=== PATIENT | female | born 1970 | race Caucasian/White ===

== ENCOUNTER 2019-07-02 15:18 | Emergency (ER) | payer MEDICAID ==
[~2019-07-02] VITALS: Ht 154.9 cm; Wt 85.3 kg
[2019-07-02 15:52] VITALS: Ht 154.9 cm; Wt 85.3 kg
[2019-07-02 19:38] VITALS: BP 155/104
== END 2019-07-02 19:37 | disposition home or self-care (01) ==
LOC: ED 15:18
DX: S16.1XXA Strain of muscle, fascia and tendon at neck level, initial encounter (principal); S29.012A Strain of muscle and tendon of back wall of thorax, initial encounter; S39.012A Strain of muscle, fascia and tendon of lower back, initial encounter; I10 Essential (primary) hypertension; J44.9 Chronic obstructive pulmonary disease, unspecified; Z98.890 Other specified postprocedural states; Z90.49 Acquired absence of other specified parts of digestive tract; Z88.1 Allergy status to other antibiotic agents; V49.88XA Car occupant (driver) (passenger) injured in other specified transport accidents, initial encounter; Y93.89 Activity, other specified; Y92.89 Other specified places as the place of occurrence of the external cause; Y99.8 Other external cause status
CPT/HCPCS: 72072; J0360; J1885; J2405; J3010